=== PATIENT | male | born 2000 | race Caucasian/White ===

== ENCOUNTER 2024-07-10 13:45 | Outpatient (CLI) | payer BC, MEDICAID, OTHER ==
[2024-07-10 22:31] LABS: CHLAMYDIA TRACHOMATIS DNA NEGATIVE (NEGATIVE); NEISSERIA GONORRHOEAE DNA NEGATIVE (NEGATIVE); TRICHOMONAS VAGINALIS DNA NEGATIVE (NEGATIVE)
[2024-07-12 06:10] LABS: HIV SCREEN 4TH GENERATION Non Reactive (Non Reactive); HSV 1 IGG TYPE SPEC <0.91 index (0.00-0.90); HSV 2 IGG TYPE SPEC <0.91 index (0.00-0.90); RPR Non Reactive (Non Reactive)
[2024-07-13 00:07] LABS: HCV AB Non Reactive (Non Reactive)
== END 2024-07-10 14:00 | disposition home or self-care (01) ==
LOC: LAB.N 13:45
PROVIDERS: ATTEND Physician Assistant Medical
DX: Z11.3 Encounter for screening for infections with a predominantly sexual mode of transmission (principal)
CPT/HCPCS: 86592; 86695; 86696; 86803; 87389; 87491; 87591; 87661